=== PATIENT | female | born 1995 | race Native Hawaiian/Other Pacific Islander ===

== ENCOUNTER 2019-02-07 22:54 | Outpatient (CLI) | payer OTHER | END 2019-02-07 22:55 | disposition short-term general hospital (02) | LOC: AMB 22:54 | DX: R05 Cough (principal); R07.89 Other chest pain; J70.5 Respiratory conditions due to smoke inhalation | CPT/HCPCS: A0425; A0427 ==

== ENCOUNTER 2019-02-07 23:00 | Emergency (ER) | payer OTHER ==
[~2019-02-07] VITALS: Ht 167.6 cm; Wt 77.1 kg
[2019-02-07 23:40] LABS: POTASSIUM 3.6 mmol/L (3.6-5.2)
[2019-02-07 23:44] LABS: PLATELET COUNT 313 K/uL (152-353)
[2019-02-07 23:53] LABS: PARTIAL THROMBOPLASTIN TIME 26.5 SECONDS (24.5-33.6)
[2019-02-08 00:30] VITALS: BP 144/68; TEMP 97.6
== END 2019-02-08 00:38 | disposition home or self-care (01) ==
LOC: ED 23:06
PROVIDERS: Hospitalist
DX: J70.5 Respiratory conditions due to smoke inhalation (principal); R05 Cough; Y92.098 Other place in other non-institutional residence as the place of occurrence of the external cause; F17.210 Nicotine dependence, cigarettes, uncomplicated
CPT/HCPCS: 36415; 36600; 80053; 80320; 82805; 85027; 85610; 85730; 94664; 99284

== ENCOUNTER 2019-04-15 12:38 | Emergency (ER) | payer OTHER ==
[~2019-04-15] VITALS: Ht 167.6 cm; Wt 79.4 kg
[2019-04-15 13:40] LABS: PLATELET COUNT 284 K/uL (152-353)
[2019-04-15 13:49] LABS: POTASSIUM 3.7 mmol/L (3.6-5.2)
[2019-04-15 15:20] VITALS: BP 131/92; TEMP 98.1
== END 2019-04-15 15:21 | disposition home or self-care (01) ==
LOC: ED 12:38
PROVIDERS: Emergency Medicine Emergency Medical Services
DX: R10.9 Unspecified abdominal pain (principal); R11.2 Nausea with vomiting, unspecified; Z97.5 Presence of (intrauterine) contraceptive device
CPT/HCPCS: 36415; 80053; 81000; 81025; 85027; 96374; 96375; 99284; J1885; J2405